=== PATIENT | male | born 1960 | race Caucasian/White ===

== ENCOUNTER 2020-12-04 11:14 | Emergency (ER) | payer OTHER ==
[2020-12-04 11:57] LABS: HEMOGLOBIN 15.4 gm/dl (14.0-17.5); RED BLOOD COUNT 5.05 M/UL (4.20-5.50); WHITE BLOOD COUNT 8.7 K/UL (4.5-11.0)
[2020-12-04 12:17] LABS: BUN/CREATININE RATIO 16 (0-10)
[2020-12-04] MEDS ORDERED: REGLAN10 MG PO (15:39)
== END 2020-12-04 15:55 | disposition home or self-care (01) ==
LOC: ER1 11:14
PROVIDERS: Physician Assistant Medical
DX: R10.11 Right upper quadrant pain (principal); R11.0 Nausea; R50.9 Fever, unspecified; I10 Essential (primary) hypertension; E03.9 Hypothyroidism, unspecified
CPT/HCPCS: 80053; 81001; 83605; 85025; 87040; 96374; 96375; 99284; J2270; J2405; J2765; Q9967